=== PATIENT | female | born 1980 | race Caucasian/White ===

== ENCOUNTER 2020-04-30 08:49 | Day surgery (SDC) | payer BC ==
[~2020-04-30 08:49] MED LIST: Lactated Ringers 1,000 ML IV SCH; Lidocaine 1% 4 ML ONE; Lidocaine 1%/Sod Bicarbonate in NS 8.4% 1 ML Syringe IDERM PRN; Midazolam 1 MG/ML 2 ML SDV ONE; Propofol 200 MG/20 ML SDV ONE; Sodium Chloride 0.9% 10 ML Syringe FLUSH PRN
--- NOTE | 2020-04-30 09:37 | PCM.PREANE ---
Preanesthetic Assessment - Procedure Proposed Procedure: EGD/colonoscopy - Anesthesia/Transfusion/Family Hx Anesthesia History: Prior Anesthesia Without Reaction Family History of Anesthesia Reaction: No Transfusion History: No Prior Transfusion(s) - Review of Systems General: No Symptoms Pulmonary: No Symptoms Cardiovascular: No Symptoms (10,000 steps per day) Gastrointestinal: No Symptoms Neurological: No Symptoms Other: Reports: Depression - Physical Assessment NPO Status Date: 04/29/20 NPO Status Time: 00:00 Height: 1.57 m Weight: 110 kg ASA Class: 3 Mental Status: Alert & Oriented x3 Airway Class: Mallampati = 2 Dentition: Reports: Normal Dentition Thyro-Mental Finger Breadths: 3 Mouth Opening Finger Breadths: 3 ROM/Head Extension: Full Lungs: Clear to Auscultation, Normal Respiratory Effort Cardiovascular: Regular Rate, Regular Rhythm - Imaging/EKG Impressions: EKG SR rate 93 ventricular bigeminy, left atrial enlargement, abnormal R wave progression, left ventricular hypertrophy - Allergies Allergies/Adverse Reactions: Allergies Allergy/AdvReac Type Severity Reaction Status Date / Time melanie Allergy Airway Verified 04/30/20 09:41 Tightness naproxen [From Aleve] Allergy Airway Verified 04/30/20 09:41 Tightness - Blood Blood Available: No Product(s) Available: None - Anesthesia Plan Pre-Op Medication Ordered: None - Acknowledgements Anesthesia Type Planned: MAC Pt an Appropriate Candidate for the Planned Anesthesia: Yes Alternatives and Risks of Anesthesia Discussed w Pt/Guardian: Yes Pt/Guardian Understands and Agrees with Anesthesia Plan: Yes PreAnesthesia Questionnaire HEENT History: Reports: Allergic Rhinitis Cardiovascular History: Reports: None Respiratory History: Reports: Other (See Below) Other Respiratory History: allergic reaction Gastrointestinal History: Reports: Chronic Diarrhea, GERD, Other (See Below) Other Gastrointestinal History: hematochezia, reflux esophagitis Other Genitourinary History: genital herpes, PCOS LICENSED PESTICIDE APPLICATOR History: Reports: Polycystic Ovaries, , Other (See Below) Other OB/BYN History: PCOS, amenorrhea Musculoskeletal History: Reports: Fracture Other Musculoskeletal History: back spasms Neurological History: Reports: Headaches, Chronic Psychiatric History: Reports: Depression, Other (See Below) Other Psychiatric History: mood swings, fatigue Endocrine/Metabolic History: Reports: Diabetes, Gestational, Obesity/BMI 30+, Vitamin D Deficiency Hematologic History: Reports: None Oncologic (Cancer) History: Reports: None Dermatologic History: Reports: None - Infectious Disease History Infectious Disease History: Reports: Herpes (Genital) - Past Surgical History Head Surgeries/Procedures: Reports: None HEENT Surgical History: Reports: Adenoidectomy, Myringotomy w Tube(s), Tonsillectomy Cardiovascular Surgical History: Reports: None Respiratory Surgical History: Reports: None GI Surgical History: Reports: Colonoscopy, EGD Female Surgical History: Reports: Section, Tubal Ligation Male Surgical History: Reports: None Endocrine Surgical History: Reports: None Neurological Surgical History: Reports: None Musculoskeletal Surgical History: Reports: None Oncologic Surgical History: Reports: None Dermatological Surgical History: Reports: None - SUBSTANCE USE Tobacco Use Status *Q: Never Tobacco User Tobacco Use Within Last Twelve Months: No Second Hand Smoke Exposure: No Days Per Week of Alcohol Use: 0 Number of Drinks Per Day: 0 Total Drinks Per Week: 0 Recreational Drug Use History: No - HOME MEDS Home Medications: Home Meds Butalb/Acetaminophen/Caffeine [Arvafc-Urepodfr-Guxg 50-325-40] 1 tab PO Q4H PRN 04/27/20 [History] Cholecalciferol (Vitamin D3) [Vitamin D3] 2,000 unit PO DAILY 04/27/20 [History] Dicyclomine [Bentyl] 10 mg PO QID 04/27/20 [History] Escitalopram Oxalate [Lexapro] 10 mg PO DAILY 04/27/20 [History] Pantoprazole Sodium [Protonix] 20 mg PO DAILY 04/27/20 [History] - CURRENT (IN HOUSE) MEDS Current Meds: Current Medications Lactated Ringer's (Ringers, Lactated) 1,000 mls @ 125 mls/hr IV ASDIRECTED BONG Stop: 04/30/20 23:00 Lidocaine/Sodium Bicarbonate (Buffered Lidocaine 1% In Ns 8.4%) 0.25 ml IDERM ONETIME PRN PRN Reason: Prior to IV Start Stop: 04/30/20 18:00 Sodium Chloride (Saline Flush) 10 ml FLUSH ASDIRECTED PRN PRN Reason: Keep Vein Open Stop: 04/30/20 18:00 Discontinued Medications Lidocaine HCl (Xylocaine-Mpf 1%) Confirm Administered Dose 4 mls @ as directed .ROUTE .STK-MED ONE Stop: 04/30/20 08:00 Midazolam HCl (Versed 1 Mg/Ml) Confirm Administered Dose 2 mg .ROUTE .STK-MED ONE Stop: 04/30/20 08:02 Propofol (Diprivan 20 Ml) Confirm Administered Dose 200 mg .ROUTE .STK-MED ONE Stop: 04/30/20 08:00 Propofol (Diprivan 20 Ml) Confirm Administered Dose 200 mg .ROUTE .STK-MED ONE Stop: 04/30/20 08:01
[2020-04-30] MEDS ORDERED: fentaNYL 100 MCG/2 ML SDV ONE (09:40)
[2020-04-30] MEDS ORDERED: Midazolam 1 MG/ML 2 ML SDV ONE (09:40)
[2020-04-30] MEDS ORDERED: Propofol 200 MG/20 ML SDV ONE (09:40)
--- NOTE | 2020-04-30 10:53 | PCM48HPAN ---
Post Anesthesia Note - EVALUATION WITHIN 48HRS OF ANESTHETIC Vital Signs in Normal Range: Yes Patient Participated in Evaluation: Yes Respiratory Function Stable: Yes Airway Patent: Yes Cardiovascular Function Stable: Yes Hydration Status Stable: Yes Pain Control Satisfactory: Yes Nausea and Vomiting Control Satisfactory: Yes Mental Status Recovered: Yes Vital Signs: Last Vital Signs Temp 36.2 C 04/30/20 09:05 Pulse 80 04/30/20 09:05 Resp 16 04/30/20 09:05 BP 125/78 04/30/20 09:05 Pulse Ox 97 04/30/20 09:05 - COMMENTS/OBSERVATIONS Free Text/Narrative:: no anesthesia complications noted
--- NOTE | 2020-04-30 11:48 | PROC ---
DATE OF OPERATION: 04/30/2020 SURGEON: Lori Cruz MD PREOPERATIVE DIAGNOSIS: Hematochezia. POSTOPERATIVE DIAGNOSES: 1. Esophagitis. 2. Small hiatal hernia. 3. Antritis. 4. Polyp in the proximal transverse colon. 5. Mucosal changes in the cecum. 6. Grade III Hemorrhoids PROCEDURES: 1. Esophagogastroduodenoscopy. 2. Colonoscopy. ANESTHESIA: Monitored anesthesia care. ESTIMATED BLOOD LOSS: Minimal. COMPLICATIONS: None. INDICATION AND CONSENT: The patient is a 39-year-old female who had a episodes of hematochezia and lower abdominal pain. The patient had had something like this in the past 2016, where EGD colonoscopy was normal. The patient presented to my clinic again with the same symptoms. A CT was done, it was normal, and I recommended to proceed with EGD and colonoscopy. Risks, benefits, and alternatives were discussed, and informed consent was obtained. DESCRIPTION OF PROCEDURE: The patient was taken to the procedure room, placed in left lateral decubitus position. Monitored anesthesia care was induced. Time-out was performed. The patient was appropriately padded. We began with an EGD. EGD scope was inserted into the mouth with clear visualization of the vocal cords. We went into the esophagus. The proximal and mid esophagus were normal. Distal esophagus, there was grade A esophagitis. We traversed this. Z-line was regular, then went into the stomach. There was some mild gastritis in the stomach, especially in the antrum. This was characterized by patchy with areas of erythema. There was no signs of ulcer. The duodenum appeared normal. There was mild mucosa erythema in the first portion of duodenum. This site was biopsied with cold forceps. The 2nd portion of duodenum was normal. Biopsies were taken also in the antrum as well as in the distal body of the stomach that appeared to be inflamed. On retroflexion, there was a small sliding hiatal hernia without any ulcerations. Went back into the esophagus, and distal esophagus biopsies were taken to confirm esophagitis. After that, air was suctioned out the stomach and concluded this procedure. Then, we turned our attention to the colonoscopy. Perianal exam was significant for grade 3 internal hemorrhoids. There was 1 that was irritated in the left lateral position and had minor bleeding on digital rectal examination. The endoscope was inserted and taken all the way to the cecum. Ileocecal valve as well as appendiceal orifice were photographed. Prep was good. The terminal ileum was entered and inspected, it appeared normal. In the cecum, there was some mucosal changes. Biopsy was taken. Upon withdrawal, the ascending colon was normal. In the proximal transverse colon, there was a 4 mm pedunculated polyp that was removed with cold forceps, removal was complete. There were mild mucosal changes in the sigmoid and rectum. These areas were biopsied. On retroflexion we confirmed grade III internal hemorrhoids that were nonbleeding at this time. Air was suctioned out and colonoscopy was concluded. based on this exam, it is likely that the patient bled from hemorrhoids. I recommended the patient maintain soft stools to minimize recurrence of this complication. The patient can continue watchful waiting at home. Patient is on Protonix once daily. I recommended that she take it twice daily due to persistent mild esophagitis and the fact that she is still symptomatic. KENYON /[id number] MIRLANDE
[2020-04-30 12:02] VITALS: BP 146/89; PULSE 71
== END 2020-04-30 12:30 | disposition home or self-care (01) ==
LOC: JD.SDS 08:49
PROVIDERS: ATTEND Surgery
DX: D12.3 Benign neoplasm of transverse colon (principal); I78.1 Nevus, non-neoplastic; K31.89 Other diseases of stomach and duodenum; K44.9 Diaphragmatic hernia without obstruction or gangrene; K64.2 Third degree hemorrhoids; K29.50 Unspecified chronic gastritis without bleeding; K21.00 Gastro-esophageal reflux disease with esophagitis, without bleeding; F32.9 Major depressive disorder, single episode, unspecified; E66.9 Obesity, unspecified; E55.9 Vitamin D deficiency, unspecified; Z98.890 Other specified postprocedural states; Z88.8 Allergy status to other drugs, medicaments and biological substances; Z91.018 Allergy to other foods; Z68.41 Body mass index [BMI] 40.0-44.9, adult
CPT/HCPCS: 43239; 45380; 93005; J2001; J2250; J2704; J3010; J7120; 00813

== ENCOUNTER 2020-10-09 07:16 | Emergency (ER) | payer BC ==
[2020-10-09 07:27] VITALS: PULSE 52
[2020-10-09] MEDS ORDERED: Sodium Chloride 0.9% 10 ML Syringe FLUSH PRN ×2 (07:27→08:19)
[2020-10-09] MEDS ORDERED: Aspirin 81 MG Tab.Chew PO ONE (07:27)
--- NOTE | 2020-10-09 08:06 | CR ---
Chest: Frontal and lateral views of the chest were obtained. Comparison: Prior chest x-ray of 02/03/16. Heart size and mediastinum are normal. Lungs are clear with no acute parenchymal change. Bony structures are within normal limits for the patient's age. Impression: 1. Nothing acute is seen on 2 view chest x-ray. Diagnostic code #1
[2020-10-09] MEDS ORDERED: Iopamidol 755 Mg/ML 100 ML Bottle IVPUSH ONE (08:19)
[2020-10-09] MEDS ORDERED: Sodium Chloride 0.9% 100 ML IV SCH (08:30)
--- NOTE | 2020-10-09 08:51 | CT ---
CT chest Technique: Multiple axial sections of the chest were obtained. Intravenous contrast was utilized. Study has been performed as a pulmonary angiogram protocol. Comparison: Prior CT chest performed as a pulmonary embolism protocol dated 02/03/16. Findings: Pulmonary arteries are well opacified. No filling defects are seen to indicate pulmonary embolism. Visualized upper abdominal structures show nothing acute. No pericardial thickening is seen. Thoracic aorta shows no aneurysm. Mediastinum and hilar regions show no adenopathy or mass. No axillary adenopathy is noted. Lung window settings were reviewed. No acute parenchymal change is seen. No pleural effusions or pneumothorax are seen. Bone window settings were reviewed which show no acute osseous finding. Impression: 1. No findings of pulmonary embolism. 2. Nothing acute is appreciated on CT study of the chest. Diagnostic code #1
--- NOTE | 2020-10-09 09:32 | EDM.PDOC ---
ED HPI GENERAL MEDICAL PROBLEM - General Chief Complaint: Chest Pain Stated Complaint: CHEST PAIN/SOB Time Seen by Provider: 10/09/20 07:18 Source of Information: Reports: Patient History Limitations: Reports: No Limitations - History of Present Illness INITIAL COMMENTS - FREE TEXT/NARRATIVE: The patient presents with right sided chest pain and shortness of breath. This started about 5am. She says the pain radiates to her back. She has no fever, chills, cough, or abdominal pain. She did have some nausea but no vomiting earlier. She has no history of coronary artery disease. She does not smoke. She has no history of hypertension or hypercholesterolemia. She does have a history of PVCs. She saw cardiology. She is on metoprolol. She will be seeing an senior program manager next month. She has a history of sleep apnea. Onset: Sudden Duration: Hour(s): (5am) Location: Reports: Chest Quality: Reports: Sharp Severity: Moderate Improves with: Reports: None Worsens with: Reports: None Associated Symptoms: Reports: Chest Pain, Nausea/Vomiting, Shortness of Breath. Denies: Cough, Fever/Chills, Headaches Right Chest Pain Score (Numeric/FACES): 9 - Related Data Allergies Allergy/AdvReac Type Severity Reaction Status Date / Time melanie Allergy Airway Verified 10/09/20 07:27 Tightness naproxen [From Aleve] Allergy Airway Verified 10/09/20 07:27 Tightness Home Meds: Home Meds Butalb/Acetaminophen/Caffeine [Wiaxot-Oodfqcks-Skbw 50-325-40] 1 tab PO Q4H PRN 04/27/20 [History] Escitalopram Oxalate [Lexapro] 10 mg PO DAILY 04/27/20 [History] Pantoprazole Sodium [Protonix] 20 mg PO DAILY 04/27/20 [History] Metoprolol Succinate [Toprol Xl] 25 mg PO DAILY 10/09/20 [History] valACYclovir HCl [Valtrex] 500 mg PO ASDIRECTED 10/09/20 [History] Past Medical History HEENT History: Reports: Allergic Rhinitis Cardiovascular History: Reports: Other (See Below) Other Cardiovascular History: PVC's Respiratory History: Reports: Bronchitis, Recurrent, Pneumonia, Recurrent, Sleep Apnea, Other (See Below) Other Respiratory History: allergic reaction, wears C-PAP. 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: Polycystic Ovaries, Other REGIONAL MARKETING DIRECTOR History: PCOS, amenorrhea Musculoskeletal History: Reports: Fracture Other Musculoskeletal History: back spasms Neurological History: Reports: Headaches, Chronic, Migraines Psychiatric History: Reports: Depression Other Psychiatric History: mood swings, fatigue Endocrine/Metabolic History: Reports: Diabetes, Gestational, Obesity/BMI 30+ Hematologic History: Reports: None Oncologic (Cancer) History: Reports: None Dermatologic History: Reports: None - Infectious Disease History Infectious Disease History: Reports: Herpes - Past Surgical History HEENT Surgical History: Reports: Adenoidectomy, Myringotomy w Tube(s), Tonsillectomy GI Surgical History: Reports: Colonoscopy, EGD Female Surgical History: Reports: Section, Tubal Ligation Social & Family History - Tobacco Use Tobacco Use Status *Q: Never Tobacco User Second Hand Smoke Exposure: No - Caffeine Use Caffeine Use: Reports: Soda - Recreational Drug Use Recreational Drug Use: No - Living Situation & Occupation Living situation: Reports: , with Family Occupation: Unemployed ED ROS GENERAL - Review of Systems Review Of Systems: See Below Constitutional: Reports: No Symptoms HEENT: Reports: No Symptoms Respiratory: Reports: Shortness of Breath Cardiovascular: Reports: Chest Pain Endocrine: Reports: No Symptoms GI/Abdominal: Reports: Nausea. Denies: Abdominal Pain, Vomiting : Reports: No Symptoms Musculoskeletal: Reports: No Symptoms Skin: Reports: No Symptoms Neurological: Reports: No Symptoms ED EXAM, GENERAL - Physical Exam Exam: See Below Exam Limited By: No Limitations General Appearance: Alert, No Apparent Distress Ears: Normal External Exam Nose: Normal Inspection Head: Atraumatic, Normocephalic Neck: Normal Inspection Respiratory/Chest: No Respiratory Distress, Lungs Clear, Normal Breath Sounds Cardiovascular: Regular Rate, Rhythm, No Edema, No Murmur GI/Abdominal: Soft, No Organomegaly, No Mass, Tender (Mild to moderate tenderness to the right upper abdomen) #1 Interpretation EKG Date: 10/09/20 Time: 07:21 Rhythm: Other (sinus bradycardia and arrhythmia) Rate (Beats/Min): 53 Echo: Normal P-Wave: Present QRS: Normal ST-T: Normal QT: Normal EKG Interpretation Comments: PVC Course - Vital Signs Last Recorded V/S: Last Vital Signs Temp 96.9 F 10/09/20 07:18 Pulse 52 L 10/09/20 07:18 Resp 20 10/09/20 07:18 BP 172/90 H 10/09/20 07:18 Pulse Ox 98 10/09/20 07:18 - Orders/Labs/Meds Orders: Active Orders 24 hr Category Date Time Status Cardiac Monitoring [RC] . DIRECTED Care 10/09/20 07:27 Active EKG Documentation Completion [RC] STAT Care 10/09/20 07:28 Active Peripheral IV Care [RC] . DIRECTED Care 10/09/20 07:28 Active Sodium Chloride 0.9% [Normal Saline] 100 ml Med 10/09/20 08:30 Active IV ASDIRECTED Sodium Chloride 0.9% [Saline Flush] Med 10/09/20 07:27 Active 10 ml FLUSH ASDIRECTED PRN Sodium Chloride 0.9% [Saline Flush] Med 10/09/20 08:19 Active 10 ml FLUSH ONETIME PRN Peripheral IV Insertion Adult [OM.PC] Stat Oth 10/09/20 07:27 Ordered Medication Orders Sodium Chloride (Normal Saline) 100 mls @ 75 mls/hr IV ASDIRECTED BONG Last Admin: 10/09/20 08:30 Dose: 75 mls/hr Documented by: NISREEN Sodium Chloride (Sodium Chloride 0.9% 10 Ml Syringe) 10 ml FLUSH ASDIRECTED PRN PRN Reason: Keep Vein Open Last Admin: 10/09/20 07:30 Dose: 10 ml Documented by: TONE Sodium Chloride (Sodium Chloride 0.9% 10 Ml Syringe) 10 ml FLUSH ONETIME PRN PRN Reason: IV FLUSH Last Admin: 10/09/20 08:30 Dose: 10 ml Documented by: NISREEN Labs: Laboratory Tests 10/09/20 10/09/20 10/09/20 Range/Units 07:23 07:23 07:23 WBC 6.66 (3.98-10.04) K/mm3 RBC 4.89 (3.98-5.22) M/mm3 Hgb 14.7 (11.2-15.7) gm/dl Hct 44.6 (34.1-44.9) % MCV 91.2 (79.4-94.8) fl MCH 30.1 (25.6-32.2) pg MCHC 33.0 (32.2-35.5) g/dl RDW Std Deviation 43.9 (36.4-46.3) fL Plt Count 282 (182-369) K/mm3 MPV 9.8 (9.4-12.3) fl Neut % (Auto) 55.0 (34.0-71.1) % Lymph % (Auto) 36.2 (19.3-51.7) % Humphreys % (Auto) 6.6 (4.7-12.5) % Eos % (Auto) 1.8 (0.7-5.8) Baso % (Auto) 0.2 (0.1-1.2) % Neut # (Auto) 3.67 (1.56-6.13) K/mm3 Lymph # (Auto) 2.41 (1.18-3.74) K/mm3 Humphreys # (Auto) 0.44 H (0.24-0.36) K/mm3 Eos # (Auto) 0.12 (0.04-0.36) K/mm3 Baso # (Auto) 0.01 (0.01-0.08) K/mm3 D-Dimer, Quantitative 0.79 H (0.19-0.50) mg/L Sodium 143 (136-145) mEq/L Potassium 3.6 (3.5-5.1) mEq/L Chloride 105 (98-107) mEq/L Carbon Dioxide 25 (21-32) mEq/L Anion Gap 16.6 H (5-15) BUN 15 (7-18) mg/dL Creatinine 0.9 (0.55-1.02) mg/dL Est Cr Clr Drug Dosing 68.05 mL/min Estimated GFR (MDRD) > 60 (>60) mL/min BUN/Creatinine Ratio 16.7 (14-18) Glucose 110 H (74-106) mg/dL Calcium 9.1 (8.5-10.1) mg/dL Magnesium 1.8 (1.8-2.4) mg/dl Total Bilirubin 0.3 (0.2-1.0) mg/dL AST 15 (15-37) U/L ALT 22 (14-59) U/L Alkaline Phosphatase 93 (46-116) U/L Troponin I < 0.017 (0.00-0.056) ng/mL Total Protein 7.6 (6.4-8.2) g/dl Albumin 3.5 (3.4-5.0) g/dl Globulin 4.1 gm/dL Albumin/Globulin Ratio 0.9 L (1-2) Urine Color (Yellow) Urine Appearance (Clear) Urine pH (5.0-8.0) Ur Specific [place] (1.005-1.030) Urine Protein (Negative) Urine Glucose (UA) (Negative) Urine Ketones (Negative) Urine Occult Blood (Negative) Urine Nitrite (Negative) Urine Bilirubin (Negative) Urine Urobilinogen (0.2-1.0) Ur Leukocyte Esterase (Negative) 10/09/20 10/09/20 Range/Units 08:00 09:47 WBC (3.98-10.04) K/mm3 RBC (3.98-5.22) M/mm3 Hgb (11.2-15.7) gm/dl Hct (34.1-44.9) % MCV (79.4-94.8) fl MCH (25.6-32.2) pg MCHC (32.2-35.5) g/dl RDW Std Deviation (36.4-46.3) fL Plt Count (182-369) K/mm3 MPV (9.4-12.3) fl Neut % (Auto) (34.0-71.1) % Lymph % (Auto) (19.3-51.7) % Humphreys % (Auto) (4.7-12.5) % Eos % (Auto) (0.7-5.8) Baso % (Auto) (0.1-1.2) % Neut # (Auto) (1.56-6.13) K/mm3 Lymph # (Auto) (1.18-3.74) K/mm3 Humphreys # (Auto) (0.24-0.36) K/mm3 Eos # (Auto) (0.04-0.36) K/mm3 Baso # (Auto) (0.01-0.08) K/mm3 D-Dimer, Quantitative (0.19-0.50) mg/L Sodium (136-145) mEq/L Potassium (3.5-5.1) mEq/L Chloride (98-107) mEq/L Carbon Dioxide (21-32) mEq/L Anion Gap (5-15) BUN (7-18) mg/dL Creatinine (0.55-1.02) mg/dL Est Cr Clr Drug Dosing mL/min Estimated GFR (MDRD) (>60) mL/min BUN/Creatinine Ratio (14-18) Glucose (74-106) mg/dL Calcium (8.5-10.1) mg/dL Magnesium (1.8-2.4) mg/dl Total Bilirubin (0.2-1.0) mg/dL AST (15-37) U/L ALT (14-59) U/L Alkaline Phosphatase (46-116) U/L Troponin I < 0.017 (0.00-0.056) ng/mL Total Protein (6.4-8.2) g/dl Albumin (3.4-5.0) g/dl Globulin gm/dL Albumin/Globulin Ratio (1-2) Urine Color Light yellow (Yellow) Urine Appearance Clear (Clear) Urine pH 8.0 (5.0-8.0) Ur Specific [place] 1.020 (1.005-1.030) Urine Protein Negative (Negative) Urine Glucose (UA) Negative (Negative) Urine Ketones Negative (Negative) Urine Occult Blood Negative (Negative) Urine Nitrite Negative (Negative) Urine Bilirubin Negative (Negative) Urine Urobilinogen 0.2 (0.2-1.0) Ur Leukocyte Esterase Negative (Negative) Meds: Medications Generic Name Dose Route Start Last Admin Trade Name Freq PRN Reason Stop Dose Admin Sodium Chloride 100 mls @ 75 mls/hr 10/09/20 08:30 10/09/20 08:30 Normal Saline IV 75 mls/hr ASDIRECTED BONG Administration Sodium Chloride 10 ml 10/09/20 07:27 10/09/20 07:30 Sodium Chloride 0.9% 10 Ml Syringe FLUSH 10 ml ASDIRECTED PRN Administration Keep Vein Open Sodium Chloride 10 ml 10/09/20 08:19 10/09/20 08:30 Sodium Chloride 0.9% 10 Ml Syringe FLUSH 10 ml ONETIME PRN Administration IV FLUSH Discontinued Medications Generic Name Dose Route Start Last Admin Trade Name Freq PRN Reason Stop Dose Admin Aspirin 324 mg 10/09/20 07:27 10/09/20 07:44 Aspirin 81 Mg Tab.Chew PO 10/09/20 07:28 324 mg ONETIME ONE Administration Hydromorphone HCl 0.5 mg 10/09/20 10:48 10/09/20 11:05 Hydromorphone 0.5 Mg/0.5 Ml Syringe IVPUSH 10/09/20 10:49 0.5 mg ONETIME ONE Administration Iopamidol 100 ml 10/09/20 08:19 10/09/20 08:30 Iopamidol 755 Mg/Ml 100 Ml Bottle IVPUSH 10/09/20 08:20 100 ml ONETIME ONE Administration - Re-Assessments/Exams Free Text/Narrative Re-Assessment/Exam: 10/09/20 09:37 I ordered an IV saline lock, EKG, CXR, labs and aspirin 324mg PO. Her EKG shows a sinus bradycardia with a PVC and no acute changes. Her CXR looks good. Her CBC looks good. Her D-dimer was slightly elevated at 0.79. Her CMP looks good. Her troponin is negative. She went to the bathroom multiple times when she was here so I ordered a UA and that looks good. I ordered a CT angio of her chest and there was nothing acute. She still has pain in her RUQ and chest so I ordered an US of her RUQ. I will also recheck a troponin. Her heart rate was low here and as low at 38. I feel she will need to stop her metoprolol. 10/09/20 11:19 Her US looks good. Her repeat troponin is negative. Departure - Departure Time of Disposition: 11:20 Disposition: Home, Self-Care 01 Condition: Good Clinical Impression: Atypical chest pain Abdominal pain Qualifiers: Abdominal location: upper abdomen, unspecified Qualified Code(s): R10.10 - Upper abdominal pain, unspecified Referrals: Herlinda Jackson HOTEL OFFICE MANAGER [Primary Care Provider] - 1 Week Forms: ED Department Discharge Additional Instructions: Stop taking the metoprolol for now. Your heart rate was very low in the ER. Take tylenol or motrin for pain. Follow up with Herlinda Jackson within a week. Please return if you are worse. Sepsis Event Note (ED) - Evaluation Sepsis Screening Result: No Definite Risk - Focused Exam Vital Signs: Vital Signs Temp Pulse Resp BP Pulse Ox 10/09/20 07:18 96.9 F 52 L 20 172/90 H 98 - My Orders Last 24 Hours: My Active Orders 10/09/20 07:27 Cardiac Monitoring [RC] . DIRECTED Sodium Chloride 0.9% [Saline Flush] 10 ml FLUSH ASDIRECTED PRN Peripheral IV Insertion Adult [OM.PC] Stat 10/09/20 07:28 EKG Documentation Completion [RC] STAT Peripheral IV Care [RC] . DIRECTED 10/09/20 08:19 Sodium Chloride 0.9% [Saline Flush] 10 ml FLUSH ONETIME PRN 10/09/20 08:30 Sodium Chloride 0.9% [Normal Saline] 100 ml IV ASDIRECTED - Assessment/Plan Last 24 Hours: My Active Orders 10/09/20 07:27 Cardiac Monitoring [RC] . DIRECTED Sodium Chloride 0.9% [Saline Flush] 10 ml FLUSH ASDIRECTED PRN Peripheral IV Insertion Adult [OM.PC] Stat 10/09/20 07:28 EKG Documentation Completion [RC] STAT Peripheral IV Care [RC] . DIRECTED 10/09/20 08:19 Sodium Chloride 0.9% [Saline Flush] 10 ml FLUSH ONETIME PRN 10/09/20 08:30 Sodium Chloride 0.9% [Normal Saline] 100 ml IV ASDIRECTED
--- NOTE | 2020-10-09 10:44 | US ---
Limited abdominal ultrasound: Multiple real-time images of the upper right abdomen were obtained. Comparison: No prior abdominal imaging is available. Liver shows no focal parenchymal abnormality. Gallbladder contains no shadowing gallstones. No gallbladder wall thickening is seen. Common bile duct measures up to 7 mm which most likely is incidental. Pancreas is incompletely seen. Visualized portions of the pancreas appear within normal limits. Proximal aorta shows no aneurysm. Right kidney shows no hydronephrosis or mass. Right kidney length is 10.9 cm. Inferior vena cava is patent. Main portal vein shows normal hepatopedal flow. Impression: 1. Common bile duct slightly prominent at 7 mm believed to be incidental as no gallbladder abnormality is seen. 2. Other portions of the right upper quadrant abdominal ultrasound appear unremarkable. Diagnostic code #2
[2020-10-09] MEDS ORDERED: HYDROmorphone 0.5 MG/0.5 ML Syringe IVPUSH ONE (10:48)
[2020-10-09 11:35] VITALS: BP 120/75
== END 2020-10-09 11:30 | disposition home or self-care (01) ==
LOC: JD.ED 07:16
DX: R07.89 Other chest pain (principal); R10.11 Right upper quadrant pain; R06.02 Shortness of breath; R11.0 Nausea; I49.9 Cardiac arrhythmia, unspecified; K21.9 Gastro-esophageal reflux disease without esophagitis; E66.9 Obesity, unspecified; Z68.42 Body mass index [BMI] 45.0-49.9, adult; Z91.018 Allergy to other foods; Z88.6 Allergy status to analgesic agent; Z79.899 Other long term (current) drug therapy
CPT/HCPCS: 36415; 71046; 71275; 76705; 80053; 81003; 83735; 84484; 85025; 85379; 93005; 96374; 99285; A9270; J1170; Q9967; 93010; 99284

== ENCOUNTER 2020-10-11 09:54 | Emergency (ER) | payer BC ==
[2020-10-11] MEDS ORDERED: LORazepam 2 MG/ML SDV IVPUSH ONE ×2 (10:02→10:49)
--- NOTE | 2020-10-11 10:04 | EDM.PDOC ---
ED HPI GENERAL MEDICAL PROBLEM - General Chief Complaint: Neuro Symptoms/Deficits Stated Complaint: [facility] Time Seen by Provider: 10/11/20 09:59 Source of Information: Reports: Patient History Limitations: Reports: Other (Patient is in carpopedal spasm and is does have difficulty talking. No true dysarthria.) - History of Present Illness INITIAL COMMENTS - FREE TEXT/NARRATIVE: 40-year-old female presents to the ED per [facility]. 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 Developed a pressure in her mid abdomen with nausea but no vomiting. She reports feeling quite dizzy but no true vertigo symptoms. She then became weak and started having troubles breathing. It is quite apparent that she presents in carpopedal spasm. Paramedics were concerned there was some facial weakness and inability to smile normally. Patient is having difficulty speaking due to primarily to weakness and hyperventilation. Her hands are in carpopedal spasm. She has no obvious signs of stroke at this time. She usually wears eyeglasses but they are not with her at this time. She states she is hav ing trouble focusing her vision. There was no ataxia on lateral gaze. No gaze palsy. She denies headache. Paramedics indicate her blood sugar was 97. Patient indicates she is not diabetic. As far she knows she does not have hypertension. She is allergic to Naprosyn and mangoes. Initial blood pressure is 148/88. Heart rate is 60 and sinus. O2 sats 100% on room air. Last known well time was approximately 0910 hrs. this morning. Past history suggest she does get intermittent migraine headaches. Of note the patient was seen in the ED [address] Kelley for similar type symptoms. She had a mildly elevated D-dimer at that time as well at 0.79. She did have a pulmonary angiogram completed which proved to be negative for PE. Her metoprolol succinate which she has been on for between 6 and 7 weeks was discontinued on Thursday. She did not take medication therefore for the last 2 days. She was placed on this medication by a provider in [place] for her asymptomatic PVCs. Onset: Today, Sudden Onset Date: 10/11/20 Onset Time: 09:10 Duration: Minutes:, Constant Location: Reports: Generalized (Generalized weakness. Patient feels she could not walk.), Other (Numbness and tingling bilaterally legs and hands and face.) Quality: Reports: Other (Paresthesias hands face and lower extremities.) Severity: Moderate (Continues to hyperventilate in the ED.) Improves with: Reports: None Worsens with: Reports: None Context: Denies: Activity, Exercise, Lifting, Sick Contact, Trauma, Other Associated Symptoms: Reports: Confusion, Malaise, Nausea/Vomiting, Shortness of Breath, Weakness (Mild nausea generalized weakness both upper extremities both lower extremities and bilateral face.), Other (Feels she is having trouble focusing her vision.). Denies: Chest Pain, Cough, cough w sputum, Diaphoresis, Fever/Chills, Headaches Treatments [employer]: Reports: Other (see below) (None.) Left Hand Pain Score (Numeric/FACES): 5 - Related Data Allergies Allergy/AdvReac Type Severity Reaction Status Date / Time melanie Allergy Airway Verified 10/11/20 10:04 Tightness naproxen [From Aleve] Allergy Airway Verified 10/11/20 10:04 Tightness Home Meds: Home Meds Butalb/Acetaminophen/Caffeine [[id number]-[id number] 50-325-40] 1 tab PO Q4H PRN 04/27/20 [History] Escitalopram Oxalate [Lexapro] 10 mg PO DAILY 04/27/20 [History] Pantoprazole Sodium [Protonix] 20 mg PO DAILY 04/27/20 [History] valACYclovir HCl [Valtrex] 500 mg PO ASDIRECTED 10/09/20 [History] Past Medical History HEENT History: Reports: Allergic Rhinitis Cardiovascular History: Reports: Other (See Below) Other Cardiovascular History: PVC's Respiratory History: Reports: Bronchitis, Recurrent, Pneumonia, Recurrent, Sleep Apnea, Other (See Below) Other Respiratory History: allergic reaction, wears C-PAP. Gastrointestinal History: Reports: Chronic Diarrhea, GERD Other Gastrointestinal History: hematochezia, reflux esophagitis Other Genitourinary History: genital herpes, PCOS CRUTCH MAKER History: Reports: Polycystic Ovaries, Other CRUTCH MAKER History: PCOS, amenorrhea Musculoskeletal History: Reports: Fracture Other Musculoskeletal History: back spasms Neurological History: Reports: Headaches, Chronic, Migraines Psychiatric History: Reports: Depression Other Psychiatric History: mood swings, fatigue Endocrine/Metabolic History: Reports: Diabetes, Gestational, Obesity/BMI 30+ Hematologic History: Reports: None Oncologic (Cancer) History: Reports: None Dermatologic History: Reports: None - Infectious Disease History Infectious Disease History: Reports: Herpes - Past Surgical History HEENT Surgical History: Reports: Adenoidectomy, Myringotomy w Tube(s), Tonsillectomy GI Surgical History: Reports: Colonoscopy, EGD Female Surgical History: Reports: Section, Tubal Ligation Social & Family History - Caffeine Use Caffeine Use: Reports: Soda - Living Situation & Occupation Living situation: Reports: , with Family Occupation: Unemployed ED ROS GENERAL - Review of Systems Review Of Systems: See Below Constitutional: Reports: Malaise, Weakness, Fatigue, Decreased Appetite. Denies: Fever, Chills HEENT: Reports: Glasses Respiratory: Reports: Shortness of Breath. Denies: Wheezing, Pleuritic Chest Pain, Cough, Sputum Cardiovascular: Reports: No Symptoms Endocrine: Reports: Fatigue GI/Abdominal: Reports: Abdominal Pain (No true abdominal pain more of a discomfort central abdomen and epigastrium. Intermittent nausea), Nausea : Reports: No Symptoms Musculoskeletal: Reports: No Symptoms Skin: Reports: No Symptoms Neurological: Reports: Confusion, Dizziness (Feels a little confused), Trouble Speaking (Speech is discernible. She has no true dysarthria or expressive aphasia.), Difficulty Walking (Generalized weakness), Weakness. Denies: Headache, Numbness, Syncope, Tingling Psychiatric: Reports: Anxiety Hematologic/Lymphatic: Reports: No Symptoms Immunologic: Reports: No Symptoms ED EXAM, NEURO - Physical Exam Exam: See Below Exam Limited By: Other (Patient presents to the ED with significant hyperventilation syndrome with carpopedal spasm bilaterally. Feels numb and tingly both sides of her face and upper and lower extremities bilaterally. She could move all limbs appropriately I told her arms up in the air and both legs off the gurney.) General Appearance: WD/WN, Moderate Distress (Persistent hyperventilation in the ED presents and carpopedal spasm.) Eye Exam: Bilateral Eye: Normal Inspection (Pupils are 5 mm bilaterally and react to light.), PERRL (No nystagmus on lateral gaze. No gaze palsy.) Throat/Mouth: Normal Inspection, Normal Lips, Normal Teeth, Normal Oropharynx Head Exam: Atraumatic, Normocephalic Neck: Normal Inspection, Supple, Non-Tender, Full Range of Motion. No: Carotid Bruit, Lymphadenopathy (L), Lymphadenopathy (R) Respiratory/Chest: Lungs Clear (Tachypnea on examination with shallow rapid respirations.), Normal Breath Sounds, Respiratory Distress Cardiovascular: Normal Peripheral Pulses, Regular Rate, Rhythm, No Edema, No Gallop, No Murmur, No Rub GI/Abdominal: Normal Bowel Sounds, Soft, Non-Tender, No Organomegaly, No Abnormal Bruit Neurological: Alert, Normal Dorsiflexion, CN II-XII Intact, Normal Plantar Flexion, No Motor/Sensory Deficits (Bilateral sensory deficits i.e. paresthesias both hands both feet and lower extremities and upper extremities. Bilateral numbness and tingling in her face combined with hyperventilation syndrome.), Oriented x 3. No: Normal Mood/Affect, Normal Gait DTR: 3+: Achilles (R), Achilles (L), 4+: Bicep (R) (Mild diffuse hyperreflexia.), Bicep (L), Patella (R), Patella (L) Extremities: Normal Inspection, Normal Range of Motion, Non-Tender, No Pedal Edema Psychiatric: Anxious Skin Exam: Warm, Dry, Intact, Normal Color, No Rash #1 Interpretation EKG Date: 10/11/20 Time: 10:30 Rhythm: Other Rate (Beats/Min): 52 (Occasional PVCs) Anderson: LAD-Left Anderson Deviation (Mild left axis deviation -12 degrees) P-Wave: Present ST-T: Other (T wave inversion V1 to V3 with mild ST segment depression V4 to V6. T wave flattening aVF.) QT: Normal EKG Interpretation Comments: Abnormal ECG. Unchanged when compared to ECG done 2 days ago October 09. Course - Vital Signs Last Recorded V/S: Last Vital Signs Temp 36.4 C 10/11/20 09:55 Pulse 68 10/11/20 09:55 Resp 14 10/11/20 09:55 BP 148/88 H 10/11/20 09:55 Pulse Ox 100 10/11/20 09:55 - Orders/Labs/Meds Labs: Laboratory Tests 10/11/20 10/11/20 10/11/20 Range/Units 10:25 10:25 10:25 WBC 7.07 (3.98-10.04) K/mm3 RBC 4.82 (3.98-5.22) M/mm3 Hgb 14.6 (11.2-15.7) gm/dl Hct 44.1 (34.1-44.9) % MCV 91.5 (79.4-94.8) fl MCH 30.3 (25.6-32.2) pg MCHC 33.1 (32.2-35.5) g/dl RDW Std Deviation 44.8 (36.4-46.3) fL Plt Count 293 (182-369) K/mm3 MPV 10.0 (9.4-12.3) fl Neut % (Auto) 60.7 (34.0-71.1) % Lymph % (Auto) 31.1 (19.3-51.7) % [place] % (Auto) 5.9 (4.7-12.5) % Eos % (Auto) 1.7 (0.7-5.8) Baso % (Auto) 0.3 (0.1-1.2) % Neut # (Auto) 4.29 (1.56-6.13) K/mm3 Lymph # (Auto) 2.20 (1.18-3.74) K/mm3 [place] # (Auto) 0.42 H (0.24-0.36) K/mm3 Eos # (Auto) 0.12 (0.04-0.36) K/mm3 Baso # (Auto) 0.02 (0.01-0.08) K/mm3 D-Dimer, Quantitative 0.76 H (0.19-0.50) mg/L Sodium 143 (136-145) mEq/L Potassium 3.4 L (3.5-5.1) mEq/L Chloride 106 (98-107) mEq/L Carbon Dioxide 25 (21-32) mEq/L Anion Gap 15.4 H (5-15) BUN 13 (7-18) mg/dL Creatinine 1.1 H (0.55-1.02) mg/dL Est Cr Clr Drug Dosing 55.68 mL/min Estimated GFR (MDRD) 55 (>60) mL/min BUN/Creatinine Ratio 11.8 L (14-18) Glucose 106 (74-106) mg/dL Calcium 8.7 (8.5-10.1) mg/dL Magnesium 2.3 (1.8-2.4) mg/dl Total Bilirubin 0.3 (0.2-1.0) mg/dL AST 17 (15-37) U/L ALT 19 (14-59) U/L Alkaline Phosphatase 70 (46-116) U/L CK-MB (CK-2) (0-3.6) ng/ml Troponin I (0.00-0.056) ng/mL C-Reactive Protein 0.9 (<1.0) mg/dL Total Protein 7.6 (6.4-8.2) g/dl Albumin 3.5 (3.4-5.0) g/dl Globulin 4.1 gm/dL Albumin/Globulin Ratio 0.9 L (1-2) TSH 3rd Generation (0.358-3.74) uIU/mL 10/11/20 10/11/20 Range/Units 10:25 10:25 WBC (3.98-10.04) K/mm3 RBC (3.98-5.22) M/mm3 Hgb (11.2-15.7) gm/dl Hct (34.1-44.9) % MCV (79.4-94.8) fl MCH (25.6-32.2) pg MCHC (32.2-35.5) g/dl RDW Std Deviation (36.4-46.3) fL Plt Count (182-369) K/mm3 MPV (9.4-12.3) fl Neut % (Auto) (34.0-71.1) % Lymph % (Auto) (19.3-51.7) % [place] % (Auto) (4.7-12.5) % Eos % (Auto) (0.7-5.8) Baso % (Auto) (0.1-1.2) % Neut # (Auto) (1.56-6.13) K/mm3 Lymph # (Auto) (1.18-3.74) K/mm3 [place] # (Auto) (0.24-0.36) K/mm3 Eos # (Auto) (0.04-0.36) K/mm3 Baso # (Auto) (0.01-0.08) K/mm3 D-Dimer, Quantitative (0.19-0.50) mg/L Sodium (136-145) mEq/L Potassium (3.5-5.1) mEq/L Chloride (98-107) mEq/L Carbon Dioxide (21-32) mEq/L Anion Gap (5-15) BUN (7-18) mg/dL Creatinine (0.55-1.02) mg/dL Est Cr Clr Drug Dosing mL/min Estimated GFR (MDRD) (>60) mL/min BUN/Creatinine Ratio (14-18) Glucose (74-106) mg/dL Calcium (8.5-10.1) mg/dL Magnesium (1.8-2.4) mg/dl Total Bilirubin (0.2-1.0) mg/dL AST (15-37) U/L ALT (14-59) U/L Alkaline Phosphatase (46-116) U/L CK-MB (CK-2) 0.9 (0-3.6) ng/ml Troponin I < 0.017 (0.00-0.056) ng/mL C-Reactive Protein (<1.0) mg/dL Total Protein (6.4-8.2) g/dl Albumin (3.4-5.0) g/dl Globulin gm/dL Albumin/Globulin Ratio (1-2) TSH 3rd Generation 2.724 (0.358-3.74) uIU/mL Meds: Medications Discontinued Medications Generic Name Dose Route Start Last Admin Trade Name Freq PRN Reason Stop Dose Admin Dextrose/Sodium Chloride 1,000 mls @ 150 mls/hr 10/11/20 10:15 10/11/20 10:22 Dextrose 5%-Normal Saline IV 150 mls/hr ASDIRECTED BONG Administration Lorazepam 0.5 mg 10/11/20 10:02 10/11/20 10:20 Lorazepam 2 Mg/Ml Sdv IVPUSH 10/11/20 10:03 0.5 mg ONETIME ONE Administration Lorazepam 1 mg 10/11/20 10:49 10/11/20 11:00 Lorazepam 2 Mg/Ml Sdv IVPUSH 10/11/20 10:50 1 mg ONETIME ONE Administration - Radiology Interpretation Free Text/Narrative:: 40-year-old female presents to the ED per [facility]. 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 she started to experience generalized weakness and shortness of breath. She presents to the ED as a stroke alert per paramedics. They felt that she had some left facial droop. This was not identified in the ED. She has generalized weakness of all of her muscles from hyperventilation syndrome. She presents in bilateral carpopedal spasm with thumbs abducted to the fifth metacarpal head bilaterally. She is able to lift both arms above her head with some weakness on the left side more so on the right. Both legs are able to be lifted off the gurney. She presents with mild diffuse hyperreflexia upper and lower extremities. Babinski is negative. No hard neurological signs identified. Plan IV D5 normal saline at 150 mils per hour. Routine labs to be obtained including a D-dimer. O2 sats are 100% on room air at this time with hyperventilation. Will be given Ativan 0.5 mg IV. Patient will be monitored for development of neurological deficit. - Re-Assessments/Exams Free Text/Narrative Re-Assessment/Exam: 10/11/20 10:49 patient is speaking better. She still however in carpopedal spasm. Thumb remains tucked in bilaterally to the base of the fifth metatarsal. She can move them a little bit but for the most part they are still in spasm. Will increase Ativan to 1 mg IV. Symptoms remain bilateral. She denies any headache at this time. 10/11/20 11:21 White blood cell count is normal at 7.07. With a normal differential of 60.7% on the auto differential. Hemoglobin is 14.6 with hematocrit of 44.1. Platelet count is 293,000. D-dimer is 0.76 mildly elevated. It was 0.79 two days ago. Sodium is 143. So it potassium slightly low at 3.4. Chloride 106 with a bicarb of 25. Anion gap is 15.4. BUN is 13 with a creatinine of 1.1. Glucose is 106. Calcium is 8.7. Magnesium is 2.3. Liver function normal. C-reactive protein is 0.9. Total protein is 7.6 with an albumin fraction of 3.5. 10/11/20 12:10 Troponin I came back at less than 0.017. CK-MB fraction is 0.9. She still appears a little bit dazed. However neuro exam particular cranial nerves II to XII are perfectly normal. She has her glasses with her now and her vision is restored to normal. Her heart rate is still in the mid 50s. She does have mild hyperreflexia more so on the left side versus the right I would give her 4 out of 4. Advised that if she is not better by next Thursday which will be a week off of the metoprolol succinate. Her blood pressure should be restored and she is not getting any further dizzy spells. If she does she requires further evaluation by MRI of her brain to rule out multiple sclerosis due to diffuse hyperreflexia. Once again however Babinski is negative. I agree that metoprolol succinate likely is the culprit as the patient indicates that sometimes her heart rate has been in the 30s. Of note in spite of use of metoprolol she continues to have fairly frequent PVCs probably 1 every 4-5 seconds. She may benefit from further investigations by way of an echocardi ogram. Departure - Departure Time of Disposition: 12:21 Disposition: Home, Self-Care 01 Condition: Fair Clinical Impression: Bradycardia, Acute hyperventilation syndrome Adverse effects of medication Qualifiers: Encounter type: initial encounter Qualified Code(s): T50.905A - Adverse effect of unspecified drugs, medicaments and biological substances, initial encounter - Discharge Information *PRESCRIPTION DRUG MONITORING PROGRAM REVIEWED*: Not Applicable *COPY OF PRESCRIPTION DRUG MONITORING REPORT IN PATIENT PRAFUL: Not Applicable Instructions: Hyperventilation Referrals: Mireya Bailey, PT [Primary Care Provider] - Forms: ED Department Discharge, ED Return to Work/School Form Additional Instructions: Evaluation in the emergency room today after he developed sudden onset of dizziness and generalized weakness. He developed severe carpopedal spasm and inability to walk and hardly talk due to hyperventilation syndrome. There was no sign clinically of a stroke. The evaluation suggest that current signs and symptoms are secondary to adverse effect of medication. Metoprolol succinate is a long-acting beta-jarrell which lowers her heart rate and thus reduces your blood pressure with standing which will precipitate a severe dizzy episode and potentially faint. You were given Ativan 0.5 mg initially and then a further 1 mg IV 45 minutes later due to persistence of the carpopedal spasm in your hands. Symptoms gradually improved while in the ED. Repeat neurological exam shows no evidence of neurological deficit. I do have some concern about hyperactive reflexes. If symptoms persist off of the metoprolol by next week Thursday you should be reevaluated by your primary care physician. An MRI of your brain would be indicated if you are having persistent numbness and tingling in your extremities. I would also advise a echocardiogram or ultrasound of your heart due to the frequency of the premature ventricular contractions identified in the ED today. This is in spite of the being on metoprolol. This would be done just to make sure there is no abnormalities of the structure of your heart or wall motion function note given to excuse her from work today and tomorrow due to current illness. Tentatively may return to work on Thursday. Sepsis Event Note (ED) - Focused Exam Vital Signs: Vital Signs Temp Pulse Resp BP Pulse Ox 10/11/20 09:55 36.4 C 68 14 148/88 H 100
[2020-10-11 10:10] VITALS: BP 148/88; PULSE 68
[2020-10-11] MEDS ORDERED: Dextrose 5%-0.9% NaCl 1,000 ML IV SCH (10:15)
--- NOTE | 2020-10-11 10:58 | CR ---
Chest: Portable view of the chest was obtained. Comparison: Prior chest x-ray of 10/09/20. Heart size and mediastinum are within normal limits. Lungs are clear with no acute parenchymal change. Bony structures are grossly intact. Impression: 1. Nothing acute is seen on portable chest x-ray. Diagnostic code #1
== END 2020-10-11 12:40 | disposition home or self-care (01) ==
LOC: SUPCPDRO 09:54 → JD.ED 09:54
DX: R00.1 Bradycardia, unspecified (principal); T44.7X5A Adverse effect of beta-adrenoreceptor antagonists, initial encounter; T50.995A Adverse effect of other drugs, medicaments and biological substances, initial encounter; F45.8 Other somatoform disorders; Z91.018 Allergy to other foods; Z88.5 Allergy status to narcotic agent
CPT/HCPCS: 36415; 71045; 80053; 82553; 83735; 84443; 84484; 85025; 85379; 86140; 93005; 96374; 96376; 99285; J2060; J7042; 93010; 99284

== ENCOUNTER 2020-10-23 10:17 | Emergency (ER) | payer BC ==
[2020-10-23 10:31] VITALS: BP 143/95; PULSE 83
[2020-10-23] MEDS ORDERED: LORazepam 1 MG Tab PO ONE (11:04)
--- NOTE | 2020-10-23 11:08 | EDM.PDOC ---
ED HPI GENERAL MEDICAL PROBLEM - General Chief Complaint: General Stated Complaint: DIZZY,SOB,LT SIDE FACIAL NUMBNESS Time Seen by Provider: 10/23/20 11:03 Source of Information: Reports: Patient History Limitations: Reports: No Limitations - History of Present Illness INITIAL COMMENTS - FREE TEXT/NARRATIVE: 40-year-old female presents once again to the ED feeling short of breath with numbness and tingling in both upper extremities and the left side of her face. She has been worked up thoroughly over the last week including CT pulmonary angiogram and recently turned in a Holter monitor. She is not aware of any palpitations. She states she was seated in the classroom this morning when she started to feel it come on I shortness of breath which precipitates hyperventila tion syndrome and numbness and tingling in all of her extremities. Symptoms started about an hour ago when she called her mom who flew out recently to be with her daughter due to current illness. Patient is on Escitalopram 10 mg once daily and Dr. Chung instructed her to stop this today. Current med list indicates that she was also on Atarax but she stopped this about 10 days ago and is replacing it with Ativan 1 mg at bedtime . Per history she has a history of seizure disorder witnessed by her . Most of these events that she is experiencing lately have been alone. She questions whether she bit the side of her right side of her tongue but not evident on today's exam. She is never lost control of her bowel or bladder. She has an EEG scheduled for Thursday this week. She has currently on low-dose Lamictal 50 mg daily which she just started Onset: Today, Sudden Onset Date: 10/23/20 Onset Time: 09:45 Duration: Minutes: Location: Reports: Generalized (Generalized sense of weakness lightheadedness dizziness numbness and tingling in both upper extremities and left side of her face. No carpopedal spasm today.) Quality: Reports: Other Severity: Severe (Hyperventilation syndrome) Improves with: Reports: None Worsens with: Reports: None Context: Reports: Other (Symptoms come on abruptly.). Denies: Activity, Exercise, Lifting, Sick Contact, Trauma Associated Symptoms: Reports: Confusion, Loss of Appetite, Malaise, Shortness of Breath, Weakness. 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 None.) - Related Data Allergies Allergy/AdvReac Type Severity Reaction Status Date / Time melanie Allergy Airway Verified 10/23/20 10:31 Tightness naproxen [From Aleve] Allergy Airway Verified 10/23/20 10:31 Tightness Home Meds: Home Meds Butalb/Acetaminophen/Caffeine [Tldndm-Mxhvbnbo-Igny 50-325-40] 1 tab PO Q4H PRN 04/27/20 [History] Escitalopram Oxalate [Lexapro] 10 mg PO DAILY 04/27/20 [History] Pantoprazole Sodium [Protonix] 20 mg PO DAILY 04/27/20 [History] valACYclovir HCl [Valtrex] 500 mg PO ASDIRECTED 10/09/20 [History] Escitalopram [Lexapro] 20 mg PO DAILY #30 tab 10/23/20 [Rx] LORazepam [Ativan] 1 mg PO ASDIRECTED #12 tablet 10/23/20 [Rx] Past Medical History HEENT History: Reports: Allergic Rhinitis Cardiovascular History: Reports: Other (See Below) Other Cardiovascular History: PVC's Respiratory History: Reports: Bronchitis, Recurrent, Pneumonia, Recurrent, Sleep Apnea, Other (See Below) Other Respiratory History: allergic reaction, wears C-PAP. Gastrointestinal History: Reports: Chronic Diarrhea, GERD Other Gastrointestinal History: hematochezia, reflux esophagitis Other Genitourinary History: genital herpes, PCOS PANTOGRAPHER History: Reports: Polycystic Ovaries, Other PANTOGRAPHER History: PCOS, amenorrhea Musculoskeletal History: Reports: Fracture Other Musculoskeletal History: back spasms Neurological History: Reports: Headaches, Chronic, Migraines, Seizure (Seizure witnessed by her 3 years ago.) Psychiatric History: Reports: Depression Other Psychiatric History: mood swings, fatigue Endocrine/Metabolic History: Reports: Diabetes, Gestational, Obesity/BMI 30+ Hematologic History: Reports: None Oncologic (Cancer) History: Reports: None Dermatologic History: Reports: None - Infectious Disease History Infectious Disease History: Reports: Herpes - Past Surgical History Head Surgeries/Procedures: Reports: None HEENT Surgical History: Reports: Adenoidectomy, Myringotomy w Tube(s), Tonsillectomy Cardiovascular Surgical History: Reports: None Respiratory Surgical History: Reports: None GI Surgical History: Reports: Colonoscopy, EGD Female Surgical History: Reports: Section, Tubal Ligation Endocrine Surgical History: Reports: None Neurological Surgical History: Reports: None Musculoskeletal Surgical History: Reports: None Oncologic Surgical History: Reports: None Dermatological Surgical History: Reports: None Social & Family History - Tobacco Use Tobacco Use Status *Q: Never Tobacco User - Caffeine Use Caffeine Use: Reports: Soda - Recreational Drug Use Recreational Drug Use: No - Living Situation & Occupation Living situation: Reports: , with Family Occupation: Unemployed ED ROS GENERAL - Review of Systems Review Of Systems: See Below Constitutional: Reports: Malaise, Weakness, Fatigue. Denies: Fever, Chills, Weight Loss HEENT: Reports: No Symptoms Respiratory: Reports: Shortness of Breath. Denies: Wheezing, Pleuritic Chest Pain, Cough, Sputum Cardiovascular: Reports: Blood Pressure Problem (Mild hypertension), Lightheadedness. Denies: Chest Pain, Claudication, Dyspnea on Exertion, Edema, Orthopnea (.), Palpitations, PND, Syncope, Other Endocrine: Reports: Fatigue GI/Abdominal: Reports: No Symptoms : Reports: No Symptoms Musculoskeletal: Reports: No Symptoms Skin: Reports: No Symptoms Neurological: Reports: Confusion, Dizziness, Numbness, Tingling (In both upper extremities and left side of her face.), Difficulty Walking, Weakness Psychiatric: Reports: Anxiety Hematologic/Lymphatic: Reports: No Symptoms Immunologic: Reports: No Symptoms ED EXAM, GENERAL - Physical Exam Exam: See Below Exam Limited By: No Limitations General Appearance: Alert, WD/WN, Moderate Distress, Other (Moderate hyperventilation symptoms present. Temperature is 36.3 heart rate 83 in sinus respiratory rate is 22. O2 sats 100% room air BP 1 4395.) Eye Exam: Bilateral Eye: Normal Inspection (No blepharal pallor or scleral icterus.), PERRL Throat/Mouth: Normal Inspection, Normal Lips, Normal Teeth, Normal Oropharynx Head: Atraumatic, Normocephalic Neck: Normal Inspection, Supple, Non-Tender, Full Range of Motion. No: Lymphadenopathy (L), Lymphadenopathy (R) Respiratory/Chest: No Respiratory Distress, Lungs Clear, Normal Breath Sounds, No Accessory Muscle Use Cardiovascular: Normal Peripheral Pulses, Regular Rate, Rhythm, No Edema, No Gallop, No Murmur, No Rub Peripheral Pulses: 2+: Posterior Tibial (L), Posterior Tibial (R), Dorsalis Pedis (L), Dorsalis Pedis (R), 3+: Carotid (L), Carotid (R) GI/Abdominal: Normal Bowel Sounds, Soft, Non-Tender, No Organomegaly, No Abnormal Bruit, Pelvis Stable, Other (Moderately obese.) Back Exam: Normal Inspection, Full Range of Motion. No: CVA Tenderness (L), CVA Tenderness (R) Extremities: Normal Inspection, Normal Range of Motion, Non-Tender, No Pedal Edema Neurological: Alert, Oriented, CN II-XII Intact, Normal Cognition Psychiatric: Anxious, Other Skin Exam: Warm (Hyperventilation.), Dry, Intact, Normal Color, No Rash Course - Vital Signs Last Recorded V/S: Last Vital Signs Temp 36.3 C 10/23/20 10:27 Pulse 83 10/23/20 10:27 Resp 12 10/23/20 10:27 BP 143/95 H 10/23/20 10:27 Pulse Ox 100 10/23/20 10:27 Orthostatic Blood Pressure [ 128/90 Standing] Orthostatic Blood Pressure [ 121/94 Sitting] Orthostatic Blood Pressure [ 144/97 Supine] - Orders/Labs/Meds Orders: Active Orders 24 hr Category Date Time Status EKG Documentation Completion [RC] STAT Care 10/23/20 12:12 Active Orthostatic Vital Signs [RC] ASDIRECTED Care 10/23/20 10:29 Active Chest 1V Frontal [CR] Stat Exams 10/23/20 11:04 Taken Meds: Medications Discontinued Medications Generic Name Dose Route Start Last Admin Trade Name Freq PRN Reason Stop Dose Admin Lorazepam 1 mg 10/23/20 11:04 10/23/20 11:36 Lorazepam 1 Mg Tab PO 10/23/20 11:05 1 mg ONETIME ONE Administration - Radiology Interpretation Free Text/Narrative:: 40-year-old female presents once again to the ED with hyperventilation syndrome with numbness and tingling left side of face both upper extremities. Symptoms of dyspnea came on gradually while seated in school this morning. She was sitting in a classroom when symptoms came on. This is the third event in the last week. We felt that some of her symptoms were due to bradycardia I with heart rate in the 30s and 40s which we therefore removed her metoprolol succinate 25 mg tablet which she has been off of now for 8 days. Heart rate today is back in the normal range at 70. Blood pressure is 135/99. O2 sats 98% on room air. Examination reveals clear lung ball. Neuro exam is completely normal. No carpopedal spasm today. Clinically she is suffered another panic attack. She just turned in a Holter monitor for evaluation. Plan Ativan 1 mg p.o. 1 view chest x-ray to be done. She did have multiple investigations carried out last week with no positive findings including a normal CT pulmonary angiogram due to a mildly elevated D-dimer at 0.79. Plan Ativan 1 mg p.o. 1 view chest x-ray to be done.ECG as well. - Re-Assessments/Exams Free Text/Narrative Re-Assessment/Exam: 10/23/20 12:30 chest x-ray is normal. Normal cardiac silhouette. Lung parenchyma are clear. No pleural effusions no pneumothorax. Departure - Departure Time of Disposition: 12:36 Disposition: Home, Self-Care 01 Condition: Fair Clinical Impression: Panic attacks Anxiety disorder Qualifiers: Anxiety disorder type: generalized anxiety disorder Qualified Code(s): F41.1 - Generalized anxiety disorder - Discharge Information *PRESCRIPTION DRUG MONITORING PROGRAM REVIEWED*: Not Applicable *COPY OF PRESCRIPTION DRUG MONITORING REPORT IN PATIENT PRAFUL: Not Applicable Prescriptions: LORazepam [Ativan] 1 mg PO ASDIRECTED #12 tablet Escitalopram [Lexapro] 20 mg PO DAILY #30 tab Referrals: Herlinda Jackson NP [Primary Care Provider] - Forms: ED Department Discharge Additional Instructions: Evaluation in the emergency room this morning in regards to recurrent panic attack with hyperventilation syndrome but not near as bad as you were last week. He recognized symptoms of feeling shortness of breath and then development of numbness and tingling left face and both hands generalized weakness. Anxiety disorder occurs in at least 10% of the population at least once in her lifetime. The reason for this is neurochemical imbalance in the brain. For this reason we would suggest increasing her escitalopram from 10 mg to 20 mg daily. You could take to 10 mg tablets to use up that prescription and I have written a prescription for the 20 mg tablets that could be started after the 10 mg tablets have been used. I have also written a prescription for Ativan 1 mg strength to be used at onset of similar symptoms that you experience yesterday and last week. Soon as you start to feel unwell with a sense of increased shortness of breath take the Ativan tablet to try and break the cycle. Takes a good half hour to 40 minutes to work. This is what you received in the emergency room today. Chest x-ray done in the emergency room was completely normal. You will probably need to go home and sleep for a couple of hours due to the effect of the Ativan. You should not operate a motor vehicle for the next 4 hours. Follow-up with your primary care provider after investigations are completed i.e. MRI of the brain, Holter monitor which was turned in yesterday and echocardiogram which has been ordered for next week. Suggest follow-up with your primary care provider 2 days after the MRI has been completed Sepsis Event Note (ED) - Evaluation Sepsis Screening Result: No Definite Risk - Focused Exam Vital Signs: Vital Signs Temp Pulse Resp BP Pulse Ox 10/23/20 10:27 36.3 C 83 12 143/95 H 100 - My Orders Last 24 Hours: My Active Orders 10/23/20 10:29 Orthostatic Vital Signs [RC] ASDIRECTED 10/23/20 11:04 Chest 1V Frontal [CR] Stat 10/23/20 12:12 EKG Documentation Completion [RC] STAT - Assessment/Plan Last 24 Hours: My Active Orders 10/23/20 10:29 Orthostatic Vital Signs [RC] ASDIRECTED 10/23/20 11:04 Chest 1V Frontal [CR] Stat 10/23/20 12:12 EKG Documentation Completion [RC] STAT
--- NOTE | 2020-10-23 12:48 | CR ---
Chest: Portable view of the chest was obtained. Comparison: Prior chest x-ray of 10/11/20. Heart size and mediastinum are within normal limits. Lungs are clear with no acute parenchymal change. No acute osseous abnormality is appreciated. Impression: 1. Nothing acute is seen on portable chest x-ray. 2. No change from previous study is seen. Diagnostic code #1
== END 2020-10-23 12:59 | disposition home or self-care (01) ==
LOC: JD.ED 10:17
DX: F41.0 Panic disorder [episodic paroxysmal anxiety] (principal); F41.1 Generalized anxiety disorder; K21.9 Gastro-esophageal reflux disease without esophagitis; E66.9 Obesity, unspecified; Z68.41 Body mass index [BMI] 40.0-44.9, adult; Z88.8 Allergy status to other drugs, medicaments and biological substances; Z91.018 Allergy to other foods; Z79.899 Other long term (current) drug therapy
CPT/HCPCS: 71045; 99284; A9270

== ENCOUNTER 2021-07-23 12:32 | Emergency (ER) | payer BC ==
[2021-07-23 12:42] VITALS: BP 148/101; PULSE 87
[2021-07-23] MEDS: HYDROmorphone 1 MG/ML Syringe IM ONE (13:43)
== END 2021-07-23 14:30 | disposition home or self-care (01) ==
LOC: JD.ED 12:32
DX: S83.92XA Sprain of unspecified site of left knee, initial encounter (principal); K21.9 Gastro-esophageal reflux disease without esophagitis; E66.9 Obesity, unspecified; Z68.41 Body mass index [BMI] 40.0-44.9, adult; Z91.018 Allergy to other foods; Z88.5 Allergy status to narcotic agent; Z88.8 Allergy status to other drugs, medicaments and biological substances; Z79.899 Other long term (current) drug therapy; W22.09XA Striking against other stationary object, initial encounter
CPT/HCPCS: 73564; 96372; 99283; J1170; 29505

== ENCOUNTER 2023-07-09 18:58 | Emergency (ER) | payer BC ==
[2023-07-09 19:48] LABS: BASOPHILS ABSOLUTE AUTO 0.1 K/mm3 (0.0-0.2); BASOPHILS PERCENT AUTO 0.6 % (0.0-1.0); EOSINOPHILS ABSOLUTE AUTO 0.2 K/mm3 (0.0-0.4); EOSINOPHILS PERCENT AUTO 2.7 % (0.0-6.0); HEMOGLOBIN 14.7 gm/dl (12.0-16.0); IMMATURE GRAN ABSOLUTE AUTO 0.02 K/mm3 (0.00-0.05); IMMATURE GRAN PERCENT AUTO 0.3 % (0.0-0.4); LYMPHOCYTES ABSOLUTE AUTO 3.8 K/mm3 (1.0-4.8); LYMPHOCYTES PERCENT AUTO 49.4 % (24.0-44.0); MEAN CORPUSCULAR HEMOGLOBIN 30.9 pg (28.0-32.0); MEAN CORPUSCULAR HGB CONC 34.2 g/dl (32.0-36.0); MEAN CORPUSCULAR VOLUME 90.3 fl (83.0-99.0); MEAN PLATELET VOLUME 9.3 fl (9.4-12.3); MONOCYTES ABSOLUTE AUTO 0.5 K/mm3 (0.0-0.8); MONOCYTES PERCENT AUTO 6.3 % (0.0-8.0); NEUTROPHILS ABSOLUTE AUTO 3.2 K/mm3 (1.8-7.7); NEUTROPHILS PERCENT AUTO 40.7 % (41.0-71.0); PLATELET COUNT,PLT 278 K/mm3 (150-400); RED BLOOD CELL COUNT 4.76 M/mm3 (4.10-5.30); WHITE BLOOD CELL COUNT,WBC 7.77 K/mm3 (3.9-11.3)
[2023-07-09 20:26] LABS: A/G RATIO 0.9 (1-2); ALANINE AMINOTRANSFERASE,ALT 14 U/L (14-59); ALBUMIN 3.2 g/dl (3.4-5.0); ALKALINE PHOSPHATASE 59 U/L (46-116); ANION GAP 11.2 (5-15); ASPARTATE AMNIOTRANSFERASE,AST 10 U/L (15-37); BILIRUBIN TOTAL 0.3 mg/dL (0.2-1.0); BLOOD UREA NITROGEN,BUN 12 mg/dL (7-18); BUN/CREATININE RATIO 13.3 (14-18); C-REACTIVE PROTEIN <0.2 mg/dL (<1.0); CALCIUM 8.4 mg/dL (8.5-10.1); CARBON DIOXIDE,CO2 29 mEq/L (21-32); CHLORIDE,CL 104 mEq/L (98-107); CREATININE 0.9 mg/dL (0.55-1.02); EST CRCL DRUG DOSING (CG) 65.98 mL/min; ESTIMATED GFR 81 mL/min (>60); GLUCOSE RANDOM 100 mg/dL (70-99); POTASSIUM,K 3.2 mEq/L (3.5-5.1); PROTEIN TOTAL,TP 6.7 g/dl (6.4-8.2); SODIUM,NA 141 mEq/L (136-145); TSH 2.371 uIU/mL (0.358-3.74)
[2023-07-09] MEDS ORDERED: Morphine 4 MG/ML Syringe IVPUSH ONE (20:55)
[2023-07-09 21:35] VITALS: BP 100/52; PULSE 71
== END 2023-07-09 21:00 | disposition home or self-care (01) ==
LOC: JD.ED 18:58
DX: R20.2 Paresthesia of skin (principal); K21.9 Gastro-esophageal reflux disease without esophagitis; E66.9 Obesity, unspecified; Z79.899 Other long term (current) drug therapy; Z91.018 Allergy to other foods; Z88.8 Allergy status to other drugs, medicaments and biological substances; Z68.39 Body mass index [BMI] 39.0-39.9, adult
CPT/HCPCS: 36415; 80053; 83735; 84443; 85025; 86140; 99284